=== PATIENT | female | born 1960 | race Caucasian/White ===

== ENCOUNTER → 2017-01-17 | Outpatient (CLI) | payer BC ==
--- NOTE | 2017-01-22 10:53 | MM ---
Reason for exam: screening (asymptomatic). Last mammogram was performed 1 year and 8 months ago. History: Patient is postmenopausal and is nulliparous. Family history of breast cancer in cousin at age 48. Physical Findings: A clinical breast exam by your physician is recommended on an annual basis and results should be correlated with mammographic findings. MG Screening Mammo w CAD Bilateral CC and MLO view(s) were taken. Prior study comparison: May 24, 2015, bilateral MG screening mammo w CAD. October 09, 2013, bilateral digital screening mammo w/CAD. There are scattered fibroglandular densities. Finding: There are typically benign coarse calcifications in the upper outer quadrant, middle position of the left breast. No significant changes in finding since May 24, 2015 and October 09, 2013. ASSESSMENT: Benign, BI-RAD 2 RECOMMENDATION: Routine screening mammogram of both breasts in 1 year.
== END | disposition home or self-care (01) ==
LOC: RADMAMWWP 14:46
PROVIDERS: ATTEND Internal Medicine
DX: Z12.31 Encounter for screening mammogram for malignant neoplasm of breast (principal)

== ENCOUNTER → 2018-04-02 | Outpatient (CLI) | payer BC ==
--- NOTE | 2018-04-02 15:53 | XR ---
Right shoulder HISTORY: Right shoulder pain, trauma 3 views of the right shoulder No comparisons Bone mineralization, joint spaces and alignment are maintained. Right lung apex as visualized is norm al. No fracture or dislocation. Acromioclavicular joint arthropathy noted. Some calcification present along the rotator cuff distribution. Possible distal acromial spur. IMPRESSION: No acute abnormality. Correlate for impingement, calcific tendinitis, shoulder MRI may be of benefit.
--- NOTE | 2018-04-02 16:00 | XR ---
EXAMINATION TYPE: XR chest 2V DATE OF EXAM: 04/02/2018 COMPARISON: Prior chest x-ray 10/02/2017 HISTORY: Pain from fall 2 weeks prior TECHNIQUE: Frontal and lateral views of the chest are obtained. FINDINGS: There is no focal air space opacity, pleural effusion, or pneumothorax seen. The cardiac silhouette size is within normal limits. The osseous structures are intact. There is elevation of t he left shoulder relation to the right. This may be positional. Prominent lung volume could be indica tive of underlying COPD. IMPRESSION: No acute cardiopulmonary process.
--- NOTE | 2018-04-02 16:03 | XR ---
Right foot HISTORY: Trauma and pain 3 views of the right foot submitted. Bone mineralization and alignment are maintained. Mild arthropathy change present at the metatarsopha langeal joint of the first digit. There is a plantar spur. Enthesophyte present at the insertion of t he Achilles tendon. IMPRESSION: No fracture or dislocation evident.
== END ==
LOC: RADXRMAIN 10:03
PROVIDERS: ATTEND Internal Medicine
DX: M75.31 Calcific tendinitis of right shoulder (principal); M79.672 Pain in left foot; I10 Essential (primary) hypertension
CPT/HCPCS: 71046

== ENCOUNTER → 2018-04-30 | Outpatient (CLI) | payer BC | END | disposition home or self-care (01) | LOC: RADMRIMAIN 09:21 | PROVIDERS: ATTEND Internal Medicine | DX: Z53.9 Procedure and treatment not carried out, unspecified reason (principal) ==

== ENCOUNTER → 2018-05-07 | Outpatient (CLI) | payer BC ==
--- NOTE | 2018-05-07 15:34 | MM ---
Reason for exam: screening (asymptomatic). Last mammogram was performed 1 year and 4 months ago. History: Patient is postmenopausal and is nulliparous. Family history of breast cancer in cousin at age 48. Physical Findings: A clinical breast exam by your physician is recommended on an annual basis and results should be correlated with mammographic findings. MG Screening Mammo w CAD Bilateral CC and MLO view(s) were taken. Prior study comparison: January 17, 2017, bilateral MG screening mammo w CAD. May 24, 2015, bilateral MG screening mammo w CAD. There are scattered fibroglandular densities. Finding: There are typically benign round, linear calcifications in both breasts. There is no discrete abnormality. ASSESSMENT: Benign, BI-RAD 2 RECOMMENDATION: Routine screening mammogram of both breasts in 1 year.
== END | disposition home or self-care (01) ==
LOC: RADMAMWWP 09:11
PROVIDERS: ATTEND Internal Medicine
DX: Z12.31 Encounter for screening mammogram for malignant neoplasm of breast (principal)
CPT/HCPCS: 77067

== ENCOUNTER → 2019-03-04 | Outpatient (CLI) | payer OTHER ==
--- NOTE | 2019-03-04 11:35 | XR ---
EXAMINATION TYPE: XR shoulder complete RT DATE OF EXAM: 03/04/2019 COMPARISON: 04/02/2018 HISTORY: 58-year-old female right shoulder pain TECHNIQUE: 3 views FINDINGS: Mild marginal spurring and capsular hypertrophy at the AC joint. Subacromial space is preserved. No t endinous or bursal calcifications. No acute fracture, subluxation, or dislocation seen. IMPRESSION: Similar mild AC joint OA. No acute osseous abnormality seen. Previously seen possible calcification i n the subacromial region no longer identified.
== END | disposition home or self-care (01) ==
LOC: RADXRYALE 10:06
PROVIDERS: ATTEND Physician Assistant Medical
DX: M19.011 Primary osteoarthritis, right shoulder (principal)

== ENCOUNTER → 2019-03-28 | Outpatient (CLI) | payer BC, OTHER ==
--- NOTE | 2019-03-28 20:38 | MR ---
EXAMINATION TYPE: MR shoulder RT wo con DATE OF EXAM: 03/28/2019 COMPARISON: X-ray 03/04/2019 HISTORY: No prior. right shoulder pain for 6 weeks TECHNIQUE: Multiplanar, multisequence imaging of the right shoulder is performed without contrast. FINDINGS: There is a complete full-thickness tear measuring 1.5 cm involving the distal margin and insertion of the supraspinatus tendon with retraction measuring approximately 1.3 cm. There is thinning and fraying of the anterior fibers of the insertion and distal 1.3 cm of the infras pinatus tendon compatible with tendinopathy and partial tear. No retraction. Subscapularis tendon intact. There is a moderate amount of fluid in the subacromial subdeltoid bursa. A bony labrum are grossly in tact by non arthrogram MRI. Marrow edema involving the superior head of the humerus likely reactive. Correlate clinically for tra urbano to exclude contusion. Bicipital tendon is well situated the bicipital groove. Subscapularis Notch has a normal appearance. There is narrowing and hypertrophic change of the AC joint which does result in impingement of the faith praspinatus tendon and muscle. IMPRESSION: 1. Complete through thickness tear measuring 1.5 cm of the distal margin and insertion of the suprasp inatus tendon with retraction measuring approximately 1.3 cm. 2. Thinning and fraying of the anterior fibers of the insertion and distal 1.3 cm the infraspinatus t endon compatible severe tendinopathy and partial tear. No retraction. 3. Marrow edema along the superior margin of the humeral head likely reactive. Correlate for history of trauma to exclude bone contusion. 4. Impingement secondary to AC joint arthropathy.
== END | disposition home or self-care (01) ==
LOC: RADMRIMAIN 15:06
PROVIDERS: ATTEND Emergency Medicine
DX: M75.121 Complete rotator cuff tear or rupture of right shoulder, not specified as traumatic (principal); S46.811A Strain of other muscles, fascia and tendons at shoulder and upper arm level, right arm, initial encounter; M19.011 Primary osteoarthritis, right shoulder; M75.41 Impingement syndrome of right shoulder; M75.81 Other shoulder lesions, right shoulder

== ENCOUNTER → 2019-04-30 | Outpatient (CLI) | payer OTHER ==
[2019-04-30 09:55] LABS: Basophils % (A) 0 %; Eosinophils # (A) 0.2 k/uL (0-0.7); Eosinophils % (A) 2 %; HCT 46.5 % (34.0-46.0); HGB 15.1 gm/dL (11.4-16.0); Lymphocytes # (A) 2.1 k/uL (1.0-4.8); Lymphocytes % (A) 24 %; MCH 30.6 pg (25.0-35.0); MCHC 32.4 g/dL (31.0-37.0); MCV 94.3 fL (80.0-100.0); Mean Platelet Volume 6.3; Monocytes # (A) 0.4 k/uL (0-1.0); Monocytes % (A) 5 %; Neutrophils # (A) 5.8 k/uL (1.3-7.7); Neutrophils % (A) 67 %; Platelet Count 295 k/uL (150-450); RBC 4.94 m/uL (3.80-5.40); RDW 12.8 % (11.5-15.5); WBC 8.6 k/uL (3.8-10.6)
[2019-04-30 10:14] LABS: Potassium 4.4 mmol/L (3.5-5.1)
== END | disposition home or self-care (01) ==
LOC: LABPAT 09:13
PROVIDERS: ATTEND Orthopaedic Surgery
DX: Z01.810 Encounter for preprocedural cardiovascular examination (principal); Z01.812 Encounter for preprocedural laboratory examination; M75.41 Impingement syndrome of right shoulder
CPT/HCPCS: 80051; 85025; 93005

== ENCOUNTER 2019-05-12 13:19 | Day surgery (SDC) | payer OTHER ==
[2019-05-06 10:15] VITALS: BMI 28.1
--- NOTE | 2019-05-11 11:35 | HP ---
HISTORY AND PHYSICAL DATE OF SERVICE: Surgery 05/12/2019 Belinda Marroquin is a 58-year-old patient seen with progressive right shoulder pain. After we discussed options for treatment, she elected to proceed with right shoulder arthroscopy. Consent was obtained. PAST MEDICAL HISTORY: Hypertension, hyperlipidemia. PAST SURGICAL HISTORY: Knee arthroscopy, hysterectomy. DAILY MEDICATIONS: Aspirin, enalapril, simvastatin. ALLERGIES: TO VOLTAREN. SOCIAL HISTORY: Smokes 1/2 pack cigarettes daily. PHYSICAL EXAMINATION: Evaluation of the right shoulder, flexion 150 degrees, abduction 40 degrees. External rotation 20 degrees with some weakness. There is tenderness along the anterior lateral acromion rotator cuff insertion site. Impingement sign is positive at 90 degrees. Drop-arm sign is positive. Distal neurovascular exam is intact. RADIOGRAPHS: Right shoulder radiographs revealed a type 2 acromion as well as acromioclavicular joint osteoarthritis. An MRI of the right shoulder revealed rotator cuff tear, impingement and acromioclavicular joint osteoarthritis. IMPRESSION: 1. Right shoulder impingement with rotator cuff tear. 2. Right shoulder acromioclavicular joint osteoarthritis. 3. Hypertension. 4. Hyperlipidemia. PLAN: Right shoulder arthroscopy with subacromial decompression, probable arthroscopic rotator cuff repair, possible Chandu procedure and debridement. Surgery 05/12/2019. MMODL / IJN: [id number] /
[~2019-05-12 13:19] MED LIST: DEXAMETHASONE SOD PHOSPHATE 10 MG/ML 1 ML VIAL IV ONE; HYDROmorphone 0.5 MG/0.5 ML SYRINGE IVP PRN; KETOROLAC 30 MG/ML 1 ML VIAL IVP SCH; LACTATED RINGERS 1,000 ML IV SCH; LIDOCAINE 1% 20 ML VIAL (10MG/ML) FOR IV START INTRADERMA PRN; ONDANSETRON 4 MG/2 ML VIAL IVP ONE; ONDANSETRON 4 MG/2 ML VIAL IVP PRN
[2019-05-12] MEDS ORDERED: MIDAZOLAM (PF) 2 MG/2 ML VIAL IVP ONE (14:25)
[2019-05-12] MEDS ORDERED: DEXAMETHASONE SOD PHOSPHATE 4 MG/ML 1 ML VIAL ONE (15:25)
[2019-05-12] MEDS ORDERED: fentaNYL (PF) 50 MCG/ML 2 ML AMP ONE (15:25)
[2019-05-12] MEDS ORDERED: ROPIVACAINE 5 MG/ML 30 ML VIAL ONE (15:25)
[2019-05-12] MEDS ORDERED: MIDAZOLAM 2 MG/2 ML VIAL ONE (15:25)
[2019-05-12] MEDS ORDERED: SUCCINYLCHOLINE CHLORIDE 100 MG/5 ML SYR IV ONE (15:25)
[2019-05-12] MEDS ORDERED: PROPOFOL 10 MG/ML 20 ML VIAL IV ONE (15:25)
[2019-05-12] MEDS ORDERED: LACTATED RINGERS 1,000 ML IV ONE (16:16)
--- NOTE | 2019-05-12 16:59 | P.OP ---
Date of Procedure: 05/12/19 Preoperative Diagnosis: Right shoulder impingement Postoperative Diagnosis: 1. Right shoulder rotator cuff tear 2. Right shoulder impingement 3. Right shoulder acromioclavicular joint osteoarthritis 4. Right shoulder partial long head biceps tendon tear 5. Right shoulder superficial labral tear Procedure(s) Performed: 1. Right shoulder arthroscopic rotator cuff repair 2. Right shoulder arthroscopic subacromial decompression 3. Right shoulder arthroscopic Chandu procedure 4. Right shoulder arthroscopic biceps tenotomy 5. Right shoulder arthroscopic debridement labral tear Implants: 4Arthrex swivel lock anchors Anesthesia: GETA, regional (Interscalene block) Surgeon: Alex Henderson Oyster Washer #1: Kole Strong Estimated Blood Loss (ml): 9 Pathology: none sent Condition: stable Disposition: PACU Indications for Procedure: 58-year-old patient seen with progressive right shoulder pain. After having treatment options discussed, she elected to proceed with arthroscopy. Operative Findings: See description of procedure Description of Procedure: Patient underwent an interscalene block by department of anesthesia for postoperative pain management. The patient was then taken to the operative suite. The patient underwent a general anesthetic by the department of anesthesia. The patient was placed into a lateral position and secured. There was appropriate padding of the bony prominence. Right shoulder was then prepped and draped in normal sterile orthopedic fashion. We placed the extremity in 10 pounds of longitudinal traction. A posterior incision was now made for a posterior working portal site. The trocar and cannula were inserted into the glenohumeral joint. Arthroscopy was initiated. Spinal needle was now inserted anteriorly, to ascertain the anterior working portal site. An incision was now made in that area, a trocar was inserted followed by a probe. There was partial tearing and hyperemia long head biceps tendon. There was superficial tearing of the superior labrum. There were grade 1 chondromalacia changes. There was an obvious rotator cuff tear I couldn't visualize from the glenohumeral side. I performed an arthroscopic biceps tenotomy. I debrided the superficial labral tear down to stable tissue. The residual labrum was stable. Instruments were now removed from the glenohumeral joint. Utilizing the posterior working portal site, the trocar and cannula were inserted into the subacromial space. Arthroscopy initiated. I made an incision 2 fingerbreadths lateral to the acromion. I introduced my trocar followed by my [employer]throCare ablator. I now began ablating thick subacromial bursal tissue, which exposed the undersurface of the anterior acromion. There was diminished subacromial space. There was a very prominent anterior acromion. A motorized bur was introduced and a subacromial decompression was performed. I also excised some osteophytes off the inferior aspect of the distal clavicle. The AC joint was visualized and noted to be fairly arthritic. The motorized bur was introduced in the anterior portal site and a Chandu procedure was performed without difficulty, decompressing the AC joint nicely. I turned my attention to the rotator cuff. There was a 2.5 cm rotator cuff tear. It was freely mobile over the footprint. I debrided the margins getting down to stable tendon tissue. I introduced my motorized bur and abraded the footprint area, getting some petechial bleeding. I now made an accessory portal site off the lateral aspect of the acromion. I punched 2 holes medial for medial row fixation with the assistance of Guillermo SERRA carefully tapping the punch with a mallet as I held the punch and the camera. I now introduced both anchors into the pre- punched holes and Guillermo SERRA tapped them with the mallet as I held anchors and the camera. Guillermo SERRA now screwed the anchors in place a while I held the anchor guide and camera. All 8 limbs of suture were now passed through good bites of rotator cuff tendon. I now punched 2 holes for lateral row fixation again I held the punch and camera while Guillermo SERRA used a mallet to tap in the punch. We now passed sutures through both anchors and individually I introduced the anchors into the pre-punch holes I held the anchor guide in position with one hand holding the camera with the other hand while Guillermo SERRA tensioned the sutures and screwed in the anchors one at a time. All residual suture limbs were now clipped. We had good compression of the tendon along the entire footprint. I injected 1 mL Renue intra-articular. Instruments now removed from the portal sites. All portal sites were approximated with nylon suture. Sterile dressings were applied followed by a shoulder immobilizer. Kole SERRA assisted in this complex case. The patient was awakened, transferred to a bed, and taken to recovery in stable condition.
--- NOTE | 2019-05-12 17:42 | P.ANPRN ---
Procedure Note - Anesthesia - Nerve Block Performed Right Interscalene Time Out Performed: Yes Date of Procedure: 05/12/19 Procedure Start Time: 14:52 Procedure Stop Time: 15:08 Location of Patient Procedure: PreOp Indication: Acute Post-Operative Pain, Requested by physician (Dr Henderson) Sedation Type: Sedate with meaningful contact maintained Preparation: Sterile Prep Position: Supine Catheter: None Needle Types: Pajunk Needle Gauge: Other (see comment) (22g) Technique: Ultrasound Injectate: 0.5% Ropivacaine (see comment for volume) (19cc, decadron 4mg) Blood Aspirated: No Pain Paresthesia on Injection Noted: No Resistance on Injection: Normal Events: Uneventful and Well Tolerated
[2019-05-12 19:23] VITALS: RESP 14; TEMP 97.9
[2019-05-12 19:24] VITALS: BP 139/79; PULSE 98
== END 2019-05-12 19:26 | disposition home or self-care (01) ==
LOC: OR 13:19 → 4SSUR 18:11 → OR 19:26
PROVIDERS: ATTEND Orthopaedic Surgery
DX: M75.101 Unspecified rotator cuff tear or rupture of right shoulder, not specified as traumatic (principal); M75.41 Impingement syndrome of right shoulder; M19.011 Primary osteoarthritis, right shoulder; S46.111A Strain of muscle, fascia and tendon of long head of biceps, right arm, initial encounter; X58.XXXA Exposure to other specified factors, initial encounter; S43.431A Superior glenoid labrum lesion of right shoulder, initial encounter; M25.711 Osteophyte, right shoulder; I10 Essential (primary) hypertension; E78.5 Hyperlipidemia, unspecified; Z90.710 Acquired absence of both cervix and uterus; F17.210 Nicotine dependence, cigarettes, uncomplicated; Z79.82 Long term (current) use of aspirin; Z79.899 Other long term (current) drug therapy; Z88.8 Allergy status to other drugs, medicaments and biological substances
CPT/HCPCS: 64415; 29826; 29827; 29824; C1713 ×3; C1765; J2250 ×2; J1100 ×2; J0690; J2405; J3010; J2795; J0330; J2704

== ENCOUNTER → 2019-12-25 | Outpatient (CLI) | payer BC ==
--- NOTE | 2019-12-29 09:11 | MM ---
Reason for exam: screening (asymptomatic). Last mammogram was performed 1 year and 8 months ago. History: Patient is postmenopausal and is nulliparous. Family history of breast cancer in cousin at age 48. Physical Findings: A clinical breast exam by your physician is recommended on an annual basis and results should be correlated with mammographic findings. MG Screening Mammo w CAD Bilateral CC and MLO view(s) were taken. Prior study comparison: May 07, 2018, bilateral MG screening mammo w CAD. January 17, 2017, bilateral MG screening mammo w CAD. There are scattered fibroglandular densities. Focal asymmetry right upper outer quadrant is stable. No significant changes when compared with prior studies. ASSESSMENT: Benign, BI-RAD 2 RECOMMENDATION: Routine screening mammogram of both breasts in 1 year.
== END | disposition home or self-care (01) ==
LOC: RADMAMWWP 14:51
PROVIDERS: ATTEND Internal Medicine
DX: Z12.31 Encounter for screening mammogram for malignant neoplasm of breast (principal)
CPT/HCPCS: 77067